=== PATIENT | male | born 2000 | race Caucasian/White ===

== ENCOUNTER 2020-02-17 23:05 | Emergency (ER) | payer BC ==
[~2020-02-17] VITALS: Ht 177.8 cm; Wt 86.2 kg
[2020-02-17 23:20] VITALS: BP_SYST 140
--- NOTE | 2020-02-17 23:20 | NUR ---
Patient to ER bed 6 to gown for evaluation. Side rails up. Report given to GERI.
--- NOTE | 2020-02-17 23:20 | NUR ---
PT BIB FAMILY FROM HOME WITH C/O EPIGASTRIC PAIN THAT STARTED PT WAS TRYING TO GO TO SLEEP. PT DRANK A GLASS OF MILK AND CONTINUED TO HAVE 10/10 PAIN. PT DENIES ANY MEDICAL HX. AAOX4, V/S STABLE. UPON EVALUATION IN ER PT REPORTS HAVING A SIGNIFICANT DECREASE IN PAIN.
--- NOTE | 2020-02-17 23:43 | NUR ---
ER DR. MONTELONGO AT THE BEDSIDE EVALUATING PT
[2020-02-18] MEDS ORDERED: PANTOPRAZOLE SODIUM 40 MG TAB PO ONE
[2020-02-18] MEDS ORDERED: ONDANSETRON 4 MG ODT TAB PO ONE ×2 (00:15)
--- NOTE | 2020-02-18 00:17 | NUR ---
Patient given written and verbal discharge instructions and verbalizes understanding. DR. JAYDA SEGURA MD discussed with patient the results and treatment provided. Patient in stable condition. ID arm band removed. Rx of ZOFRAN AND PROTONIX given. Patient educated on pain management and to follow up with PMD. Pain Scale 2/10. Opportunity for questions provided and answered. Medication side effect fact sheet provided.
[2020-02-18 00:20] VITALS: BP_SYST 140
== END 2020-02-18 00:20 | disposition home or self-care (01) ==
LOC: SED 23:05
DX: R10.13 Epigastric pain (principal)
CPT/HCPCS: 99283; Q0162